=== PATIENT | male | born 1960 | race Caucasian/White ===

== ENCOUNTER 2025-03-18 08:42 | Inpatient (IN) ==
--- NOTE | 2025-03-18 09:07 | Emergency Department Note ---
History of Present Illness General Chief complaint: Flank Pain Stated complaint: L FLANK PAIN Time Seen by Provider: 03/18/25 08:55 History of Present Illness Maximum Pain Intensity: 10 This is a 64-year-old male who presents to the emergency department via private vehicle with complaints of "abdominal pain". The patient notes that this morning he ate some peanuts and then had abrupt onset epigastric abdominal pain. No trauma no injury. He does note this does feel similar to pain he experienced 7 years ago when he had pancreatitis but this seems more severe. He notes the pain radiates into his back. Pain is also in the lower chest. No dyspnea. No fevers or chills. No vomiting. Current pain 03/13. Home Medications Medication Instructions Recorded Confirmed Type esomeprazole magnesium 20 mg 20 mg PO DAILY 03/18/25 03/18/25 History capsule,delayed release (Nexium) losartan 25 mg tablet 25 mg PO DAILY 03/18/25 03/18/25 History Allergies Allergy/AdvReac Type Severity Reaction Status Date / Time No Known Drug Allergies Allergy no known Verified 03/18/25 14:17 Past Med/Surg History Problem List Epigastric abdominal pain (Acute) GERD (gastroesophageal reflux disease) Acute pancreatitis (Acute) No pertinent past surgical history Medical History History of Hou's esophagus HTN (hypertension) Social History Smoking Status: Never smoker Hx Alcohol Use: No Hx Substance Use: No Preferred Language: Lithuanian Communication Ability: Effective Occupational Hygienist Required: No Beliefs That Will Affect Care: None Current Living Situation: Spouse Other Information That Helps Us Care for You: No Feels Safe at Home: Yes Safety Concerns: Feels Safe At This Time Assistive Devices: Hearing Aid - Bilateral Review of Systems A total of 10 systems reviewed and were otherwise negative Physical Exam Vital Signs Vital Signs - 24 hr 03/18/25 08:45 03/18/25 08:55 03/18/25 08:59 Temperature 36 C L Temperature Source Temporal Artery Scan Pulse Rate 99 H 95 H Pulse Rate [Apical] 95 H Respiratory Rate 20 18 Respiratory Effort / Characteristics Non-Labored Spontaneous Respiratory Depth Normal Respiratory Pattern Regular Blood Pressure 158/95 H Blood Pressure [Left Arm] 171/99 H Blood Pressure Mean 116 Blood Pressure Mean [Left Arm] 123 Pulse Oximetry 96 96 Oxygen Delivery Method Room Air Room Air Sepsis Recent Fever Within 48 Hours No Sepsis New/Unexplained Change in Mental Status No Sepsis Action Taken by Nursing No Action Required VITAL SIGNS - Vital signs and nursing notes were reviewed. Hypertensive, otherwise stable and afebrile. GENERAL -64-year-old male appearing his stated age who is in no acute distress but appears to be in pain. Communicates well with provider and answers questions appropriately. SKIN - Without rashes. No meningeal or petechial rash. HEAD - NC/AT. EYES - Sclera anicteric. NECK - No nuchal rigidity. LUNGS - CTA CARDIAC - RRR ABDOMEN - Abdominal contour normal without pulsations or visible masses. BS normoactive all four quadrants. No tenderness, palpable masses, hepatosplenomegaly, or ascites noted. EXTREMITIES - No clubbing or peripheral cyanosis. +5/5 strength noted in UE/LE bilaterally. NEUROLOGIC - Cranial nerves II through XII grossly intact. PSYCH -alert, oriented and pleasant on exam Course Administered Medications Acetaminophen (Acetaminophen 325 Mg Tab) 650 mg PO Q4H PRN PRN Reason: Pain or Fever Stop: 04/17/25 11:18 Last Admin: 03/18/25 11:30 Dose: 650 mg Documented By: RAINER Lactated Ringer's (Lr) 1,000 mls @ 200 mls/hr IV .Q5H GREG Stop: 03/21/25 14:14 Last Admin: 03/18/25 20:01 Dose: 200 mls/hr Documented By: Infusion: 03/18/25 20:01 Dose: Infused Documented By: Admin: 03/18/25 14:22 Dose: 200 mls/hr Documented By: RAINER Discontinued Medications Hydromorphone HCl (Hydromorphone Inj 0.5 Mg/0.5 Ml Syr) 0.5 mg IV NOW STA Stop: 03/18/25 09:06 Last Admin: 03/18/25 09:10 Dose: 0.5 mg Documented By: jyoti Hydromorphone HCl (Hydromorphone Inj 0.5 Mg/0.5 Ml Syr) 0.25 mg IV Q6H PRN PRN Reason: Pain Stop: 04/01/25 11:26 Last Admin: 03/18/25 11:41 Dose: 0.25 mg Documented By: RAINER Sodium Chloride (Nss) 1,000 mls @ 999 mls/hr IV .Q1H1M ONE Stop: 03/18/25 10:53 Last Infusion: 03/18/25 11:48 Dose: Infused Documented By: Admin: 03/18/25 10:07 Dose: 999 mls/hr Documented By: cathi Ioversol (Optiray 320 125ml) 112 ml IV ONCE ONE Stop: 03/18/25 09:21 Last Admin: 03/18/25 09:20 Dose: 112 ml Documented By: STEPHEN Miscellaneous Information (Patient's Allergy Info Needs Entered) 1 each N/A Q30M STA Stop: 03/18/25 14:14 Last Admin: 03/18/25 17:49 Dose: 1 each Documented By: RAINER Ondansetron HCl (Ondansetron Inj 2 Mg/Ml 2 Ml Vial) 4 mg IV NOW STA Stop: 03/18/25 09:06 Last Admin: 03/18/25 09:11 Dose: 4 mg Documented By: jyoti Medical Decision Making Laboratory Data 03/18/25 09:00 03/18/25 09:00 Lab Results 03/18/25 03/18/25 Range/Units 09:00 09:03 WBC 8.07 (4.8-10.8) K/ul RBC 5.64 (4.70-6.10) M/uL Hgb 15.9 (14.0-18.0) g/dl POC Hgb 16.7 (14.0-18.0) g/dl Hct 46.6 (42.0-52.0) % POC Hct 49 (42-52) % MCV 82.6 (80.0-100.0) fL MCH 28.2 (25.0-34.0) pg MCHC 34.1 (32.0-36.0) g/dL RDW Std Deviation 39.5 (36.4-46.3) fL RDW Coeff of Maulik 13.2 (11.5-14.5) % Plt Count 355 (130-400) K/uL MPV 9.7 (9.4-12.4) fL Immature Gran % (Auto) 0.2 % Neut % (Auto) 52.2 % Lymph % (Auto) 33.2 % [place] % (Auto) 11.9 % Eos % (Auto) 1.4 % Baso % (Auto) 1.1 % Neut # (Auto) 4.21 (1.40-6.50) K/uL Lymph # (Auto) 2.68 (1.20-3.40) K/uL [place] # (Auto) 0.96 H (0.11-0.59) K/uL Eos # (Auto) 0.11 (0.00-0.50) K/uL Baso # (Auto) 0.09 (0.00-0.20) K/uL Immature Gran # (Auto) 0.02 (0.01-0.20) K/uL PT 10.4 (9.0-12.0) Seconds INR 1.0 (0.9-1.1) APTT 29 (21-31) Seconds PTT Ratio 1.1 POC Sodium 138 (135-144) mmol/L Sodium 137 (136-145) mmol/L POC Potassium 3.7 (3.3-5.0) mmol/L Potassium 3.7 (3.5-5.1) mmol/L POC Chloride 101 (101-112) mmol/L Chloride 101 (98-107) mmol/L Carbon Dioxide 28 (21-32) mmol/L POC Total CO2 25 (24-31) mmol/L Anion Gap 8 (3-11) POC Anion Gap 17.0 (16-25) mmol/L POC BUN 18 (7-18) mg/dl BUN 16 (6-23) mg/dl Creatinine 0.96 (0.6-1.4) mg/dl POC Creatinine 1.1 (0.6-1.3) mg/dl Est Cr Clr Drug Dosing 80.1 ml/min eGFR 87.72 BUN/Creatinine Ratio 16.7 (10-20) Glucose 159 H (70-99(Fasting)) mg/dl POC Glucose (other) 161 H (70-99) mg/dl Calcium 9.6 (8.6-10.3) mg/dl POC Ioniz Calcium Juli 1.10 L (1.12-1.32) mmol/l Magnesium 2.1 (1.7-2.4) mg/dl Total Bilirubin 1.3 H (0.2-1.0) mg/dl AST 36 (13-39) U/L ALT 29 (7-52) U/L Alkaline Phosphatase 63 (34-104) U/L Troponin I High Sens 2.8 (0-20) pg/ml Total Protein 7.4 (6.0-8.3) gm/dl Albumin 4.0 (3.4-5.0) gm/dl Globulin 3.4 (2.5-4.0) gm/dl Albumin/Globulin Ratio 1.2 (0.9-2) Lipase 2623 H (11-82) U/L Imaging Data Radiologist's Impression: Abdomen/Pelvis CT 03/18/25 09:05 CT SCAN OF THE ABDOMEN AND PELVIS WITH IV CONTRAST CLINICAL HISTORY: Epigastric abdominal pain. COMPARISON STUDY: No priors TECHNIQUE: Following the IV administration of 112 cc of Optiray 320, CT scan of the abdomen and pelvis is performed from the lung bases to the proximal femora. Images are reviewed in the axial, sagittal, and coronal planes. IV contrast was administered without complication. A dose lowering technique was utilized adhering to the principles of ALARA. FINDINGS: Lung bases: The heart is normal in size and without pericardial effusion. There are low suspicion 3 mm pulmonary and pleural based nodules in the lingula seen on images #41 and #56. The lung bases are otherwise clear noting bibasilar scarring/atelectasis. Liver: The contrast-enhanced liver is normal in size, contour, and attenuation. There is mild central intrahepatic biliary ductal dilatation. The hepatic veins and portal veins are patent. Gallbladder: The gallbladder is distended and there are tiny calcified gallstones. There is no convincing CT evidence of acute cholecystitis. Spleen: Normal in size and attenuation. Pancreas: There is mild inflammatory change and fluid around the pancreatic head consistent with acute pancreatitis. The gland is otherwise normal in appearance and enhances throughout. The duct is normal in caliber. No peripancreatic fluid collection is seen. The splenic vein is patent. Adrenal glands: Unremarkable. Kidneys: The contrast enhanced kidneys are normal in size and without hydronephrosis. The kidneys enhance symmetrically. A circumaortic left renal vein is incidentally noted. Abdominal vasculature: The abdominal aorta is normal in course and caliber noting mild atherosclerotic calcification. Bowel: There is no bowel obstruction. The appendix is well-visualized and normal. Peritoneum: There is no intraperitoneal free air or abdominal ascites. There is a fat-containing umbilical hernia. Lymphadenopathy: None. Pelvic viscera: The prostate gland is mildly enlarged and heterogeneous. The bladder is mildly distended, and the wall appears thickened/trabeculated indicating chronic outlet obstruction. There is evidence of previous right inguinal herniorrhaphy. Surgical clips are noted along the spermatic cord. Skeletal structures: No lytic or blastic lesions are seen. There is mild lumbosacral spondylosis. IMPRESSION: 1. Mild inflammation and trace fluid around the pancreatic head is consistent with acute pancreatitis. Correlate with clinical and laboratory findings. 2. The pancreas enhances throughout and no peripancreatic fluid collection is seen. 3. Cholelithiasis without convincing CT evidence of acute cholecystitis. 4. Additional findings as above. ACT 112: Negative or not required by law. Electronically signed by: Jesse Chaparro M.D. 03/18/2025 9:49 AM Chest X-Ray 03/18/25 09:06 XR chest 1V portable CLINICAL HISTORY: epigastric abd pain COMPARISON STUDY: None FINDINGS: Heart size pulmonary vasculature are normal. No consolidation or pleural effusion. No pneumothorax. IMPRESSION: No acute findings. ACT 112: Negative or not required by law. Electronically signed by: Jamin Olsen M.D. 03/18/2025 9:49 AM Chest CTA 03/18/25 09:10 CT ANGIOGRAM OF THE CHEST COMBO CLINICAL HISTORY: Upper abdominal pain radiating to back. Evaluate for aortic dissection. COMPARISON STUDY: None. TECHNIQUE: Before and following the IV administration of 112 cc of Optiray 320, CT angiogram of the chest was performed from the thoracic inlet to the upper abdomen utilizing the dissection protocol. Images are reviewed in the axial, sagittal, and coronal planes. 3-D MIPS images are created and assessed. IV contrast was administered without complication. A dose lowering technique was utilized adhering to the principles of ALARA. CT DOSE: 2634.61 mGy.cm FINDINGS: The caliber of the thoracic aorta is normal. There is no thoracic aortic dissection or intramural hematoma. No pulmonary emboli are identified. There is no pericardial effusion. Size of the heart is within normal limits. There is no thoracic lymphadenopathy. A 4 mm right middle lobe nodule is likely benign. There is no consolidation to suggest pneumonia. Groundglass opacities within lungs favor atelectasis. Please note that the abdomen and pelvis CT will be reported separately. IMPRESSION: 1. No thoracic aortic dissection. 2. No acute intrathoracic findings. ACT 112: Negative or not required by law. Electronically signed by: Jose Guadalupe Owen M.D. 03/18/2025 9:44 AM MDM Narrative Patient was seen and evaluated as above in room B4. Review was performed of nursing notes and vital signs. After obtaining a thorough history and physical examination the above work up was performed. Patient presents to us today for evaluation of the above symptoms. He presents with acute onset epigastric abdominal pain radiating into the back. He appears to be in quite a bit of pain on examination. Vital signs stable. He does have a history of pancreatitis he notes about 7 years ago. Options of care were discussed with the patient. IV access was established. Labs were drawn. EKG per my interpretation reveals normal sinus rhythm at a rate of 94 bpm. QTc 450. QRS 86. No ST elevation. Stat creatinine testing performed and patient was sent directly to CT suite for evaluation noting this tearing type pain from the upper abdomen/lower chest into the back. CTA of the chest was performed as well as CT scan of the abdomen/pelvis. Results as above. There reassuringly is no dissection noted on the CT scan of the chest. The CT scan of the abdomen does reveal what appears to be pancreatitis. No leukocytosis or concerning anemia. Coags normal. No evidence of kidney or liver failure. There is T. bili 1.3. Troponin normal making ACS less likely. Lipase 2623 consistent with pancreatitis. Urinalysis does not suggest infection. At this time patient is felt best with inpatient management and noting the severity of pain and findings today. Case discussed with the hospitalist service. Please refer to further documentation regarding his stay. In the evaluation and treatment of this patient the following differential diagnoses were entertained: ACS, dissection, pancreatitis, obstruction, acute cholecystitis, among others Impression & Plan Acute pancreatitis, Epigastric abdominal pain Discharge Plan Visit Data Chief Complaint: Flank Pain Stated Complaint: L FLANK PAIN ED Provider: Lawrence Tavares ED Midlevel Provider: Singh Ornelas Discharge Problem: Acute pancreatitis, Epigastric abdominal pain Patient Disposition: Admitted As Inpatient Condition: Good Discharge Instructions Interventions: ED Discharge Assessment Last Done: 03/18/25 10:55 Addendum March 18, 2025 23:52 I was consulted by the Advanced Practice Provider and was substantively involved in the patient's visit.This includes aspects of the HPI, MDM, diagnostic interpretations, and disposition/plan. I discussed the case with the TONY and agree with the findings and plan as documented in TONY Bamat's note.
[2025-03-18] MEDS: HYDROmorphone INJ 0.5 MG/0.5 ML SYR IV STA (09:10)
[2025-03-18] MEDS: ONDANSETRON INJ 2 MG/ML 2 ML VIAL IV STA (09:11)
[2025-03-18] MEDS: OPTIRAY 320 125ml IV ONE (09:20)
[2025-03-18 09:31] LABS: Hematocrit (blood only) 46.6 % (42.0-52.0); Hemoglobin 15.9 g/dl (14.0-18.0); Immature Granulocytes # (auto) 0.02 K/uL (0.01-0.20); Immature Granulocytes % (auto) 0.2 %; Mean Corpuscular Hemoglobin 28.2 pg (25.0-34.0); Mean Corpuscular Volume 82.6 fL (80.0-100.0); Platelet Count 355 K/uL (130-400); RDW Standard Deviation 39.5 fL (36.4-46.3); Red Blood Count 5.64 M/uL (4.70-6.10); White Blood Count 8.07 K/ul (4.8-10.8)
--- NOTE | 2025-03-18 09:45 | CT Scan Report ---
CT ANGIOGRAM OF THE CHEST COMBO CLINICAL HISTORY: Upper abdominal pain radiating to back. Evaluate for aortic dissection. COMPARISON STUDY: None. TECHNIQUE: Before and following the IV administration of 112 cc of Optiray 320, CT angiogram of the c hest was performed from the thoracic inlet to the upper abdomen utilizing the dissection protocol. Im ages are reviewed in the axial, sagittal, and coronal planes. 3-D MIPS images are created and assesse d. IV contrast was administered without complication. A dose lowering technique was utilized adherin g to the principles of ALARA. CT DOSE: 2634.61 mGy.cm FINDINGS: The caliber of the thoracic aorta is normal. There is no thoracic aortic dissection or intr amural hematoma. No pulmonary emboli are identified. There is no pericardial effusion. Size of the he art is within normal limits. There is no thoracic lymphadenopathy. A 4 mm right middle lobe nodule is likely benign. There is no consolidation to suggest pneumonia. Groundglass opacities within lungs fa vor atelectasis. Please note that the abdomen and pelvis CT will be reported separately. IMPRESSION: 1. No thoracic aortic dissection. 2. No acute intrathoracic findings. ACT 112: Negative or not required by law. Electronically signed by: Jose Guadalupe Owen M.D. 03/18/2025 9:44 AM
[2025-03-18 09:50] LABS: Anion Gap 8.0 (3-11); Blood Urea Nitrogen 16.0 mg/dl (6-23); Calcium 9.6 mg/dl (8.6-10.3); Carbon Dioxide 28.0 mmol/L (21-32); Chloride 101.0 mmol/L (98-107); Creatinine Clr Calc Pharmacy 80.1 ml/min; Glucose 159.0 mg/dl (70-99(Fasting)); Potassium 3.7 mmol/L (3.5-5.1); Sodium 137.0 mmol/L (136-145)
--- NOTE | 2025-03-18 09:51 | XRay Report ---
XR chest 1V portable CLINICAL HISTORY: epigastric abd pain COMPARISON STUDY: None FINDINGS: Heart size pulmonary vasculature are normal. No consolidation or pleural effusion. No pneum othorax. IMPRESSION: No acute findings. ACT 112: Negative or not required by law. Electronically signed by: Jamin Olsen M.D. 03/18/2025 9:49 AM
--- NOTE | 2025-03-18 09:51 | CT Scan Report ---
CT SCAN OF THE ABDOMEN AND PELVIS WITH IV CONTRAST CLINICAL HISTORY: Epigastric abdominal pain. COMPARISON STUDY: No priors TECHNIQUE: Following the IV administration of 112 cc of Optiray 320, CT scan of the abdomen and pelv is is performed from the lung bases to the proximal femora. Images are reviewed in the axial, sagitta l, and coronal planes. IV contrast was administered without complication. A dose lowering technique w as utilized adhering to the principles of ALARA. FINDINGS: Lung bases: The heart is normal in size and without pericardial effusion. There are low suspicion 3 m m pulmonary and pleural based nodules in the lingula seen on images #41 and #56. The lung bases are o therwise clear noting bibasilar scarring/atelectasis. Liver: The contrast-enhanced liver is normal in size, contour, and attenuation. There is mild central intrahepatic biliary ductal dilatation. The hepatic veins and portal veins are patent. Gallbladder: The gallbladder is distended and there are tiny calcified gallstones. There is no convin cing CT evidence of acute cholecystitis. Spleen: Normal in size and attenuation. Pancreas: There is mild inflammatory change and fluid around the pancreatic head consistent with acut e pancreatitis. The gland is otherwise normal in appearance and enhances throughout. The duct is norm al in caliber. No peripancreatic fluid collection is seen. The splenic vein is patent. Adrenal glands: Unremarkable. Kidneys: The contrast enhanced kidneys are normal in size and without hydronephrosis. The kidneys enh ance symmetrically. A circumaortic left renal vein is incidentally noted. Abdominal vasculature: The abdominal aorta is normal in course and caliber noting mild atheroscleroti c calcification. Bowel: There is no bowel obstruction. The appendix is well-visualized and normal. Peritoneum: There is no intraperitoneal free air or abdominal ascites. There is a fat-containing umbi lical hernia. Lymphadenopathy: None. Pelvic viscera: The prostate gland is mildly enlarged and heterogeneous. The bladder is mildly disten ded, and the wall appears thickened/trabeculated indicating chronic outlet obstruction. There is evid ence of previous right inguinal herniorrhaphy. Surgical clips are noted along the spermatic cord. Skeletal structures: No lytic or blastic lesions are seen. There is mild lumbosacral spondylosis. IMPRESSION: 1. Mild inflammation and trace fluid around the pancreatic head is consistent with acute pancreatitis . Correlate with clinical and laboratory findings. 2. The pancreas enhances throughout and no peripancreatic fluid collection is seen. 3. Cholelithiasis without convincing CT evidence of acute cholecystitis. 4. Additional findings as above. ACT 112: Negative or not required by law. Electronically signed by: Jesse Chaparro M.D. 03/18/2025 9:49 AM
[2025-03-18 10:02] LABS: INR 1.0 (0.9-1.1); Partial Thromboplastin Time 29 Seconds (21-31); Prothrombin Time 10.4 Seconds (9.0-12.0)
[2025-03-18] MEDS: SODIUM CHLORIDE 0.9% 1,000 ML IV ONE (10:07)
[2025-03-18 10:10] LABS: Alanine Aminotransferase 29.0 U/L (7-52); Albumin Globulin Ratio 1.2 (0.9-2); Albumin Level 4.0 gm/dl (3.4-5.0); Alkaline Phosphatase 63.0 U/L (34-104); Bilirubin,Total 1.3 mg/dl (0.2-1.0); Globulin 3.4 gm/dl (2.5-4.0); Lipase 2623.0 U/L (11-82); Magnesium 2.1 mg/dl (1.7-2.4); Total Protein 7.4 gm/dl (6.0-8.3)
--- NOTE | 2025-03-18 10:29 | History & Physical Report ---
<Statement entered by Matt Jung, - 03/18/25 12:29> I have seen and examined the patient and have discussed the case with the advance practice provider. I have reviewed the advanced practitioner's documentation, and I agree with, and take responsibility for that plan of care. Patient seen and evaluated at the bedside. States that his pain has improved with some hydration and pain medicine in the ED. He reports that he had a bout of pancreatitis 6 or 7 years ago that was treated outpatient. He states that this was triggered by him eating a whole can of cashews and drinking 5 or 6 beers. Since then he has had intermittent abdominal discomfort when he eats fried or fatty foods but never had any recurrence of his pancreatitis until today. He states that he did drink 2 or 3 beers over the weekend but has not had any since then. He does state that he has been eating a lot of peanuts over the last few weeks. No fevers or chills. Exam: Abdomen: Slightly distended, tender epigastric area with some mild guarding, no rigidity Acute pancreatitis, suspect could be combination of alcohol and possible biliary pancreatitis despite the fact that his LFTs are normal. Imaging does show distended gallbladder with some cholelithiasis. Patient does have a history of alcohol use with use within the last 3 to 4 days. Agree with GI consultation for further recommendations on additional evaluation Further plan of care as outlined below I spent a total of 20 minutes coordinating, documenting, and providing care for this patient excluding time spent by another provider/QHP. Date of Service March 18, 2025 Assessment & Plan (1) Acute pancreatitis: (2) HTN (hypertension): (3) History of Hou's esophagus: (4) GERD (gastroesophageal reflux disease): Plan Mr. Velázquez is a 64 year old Cacuasian male that presented to the [facility] ED with guarded abdominal pain. He went to bed as normal and woke this morning with abdominal pain. He ate cereal, yogurt and coffee this morning which exacerbating his symptoms leading him to not being able to stand up and then he proceeded to the ED. Lipase level 2623, no leukocytosis, troponin negative, no transaminitis, T. bili 1.3. ECG NSR. CTAP revealed acute pancreatitis and revealed gallstones without obstruction or cholangitis to indicate acute biliary disease. Chest CT was performed ruling out dissection. Pt will be admitted to treat acute pancreatitis. Will keep n.p.o. for now and initiate clear liquids as able to support good integrity, may benefit from starting a lipid-lowering agent; will order fasting lipid panel for the a.m. Continue IV fluids and trend lipase in AM. Consult GI. Acute Pancreatitis: Lipase 2623; trend in AM No leukocytosis, social alcohol use Troponin Neg, No transaminitis. CTAP suggests acute pancreatitis with cholelithiasis without obstruction likely ISO of elevated cholesterol vs biliary disease Chest CT does not indicate any cardiac dissection ECG NSR NPO for now until better pain control and then advance as possible to support good gut integrity Received 1LNS in ED; continue IVF @ 125ml/hour Obtain lipid panel Pain control with Dilaudid and Oxy PRN GI Consult to determine if further testing with HIDA vs MRCP indicated HTN: Chronic Takes Losartan; continue H/O Barrets Esophagus: GERD: Takes Omeprazole; hold given it can cause pancreatitis Disposition: PCP: Herman Andre PA-C Code Status: Full VTE Prophylaxis: Lovenox SQ I spent a total of 81 minutes coordinating, documenting, and providing care for this patient excluding time spent inthe performance of separately billed services or time spent by another provider/QHP. History of Present Illness Chief Complaint: abdominal pain Primary Care Provider: Herman Andre DO Mr. Velázquez is a 64 year old Cacuasian male that presented to the [facility] ED with guarded abdominal pain. He went to bed as normal and woke this morning with abdominal pain. He ate cereal, yogurt and coffee this morning which exacerbating his symptoms leading him to not being able to stand up and then he proceeded to the ED. Patient was hypertensive on arrival, which has resolved. He did take his Losartan this AM. He denies tobacco, more than social alcohol use, or recreational drug use. Lipase level 2623, no leukocytosis, troponin negative, no transaminitis, T. bili 1.3. ECG NSR. A CTAP revealed acute pancreatitis and revealed gallstones without obstruction or cholangitis to indicate acute biliary disease. Chest CT was performed to rule out dissection; a 4 mm right mid middle lung nodule was identified. As an outpatient over the last year patient has had intermittent chest pain and he had a stress echo on 11/17/2024 LV wall motion normal EF 55 to 59%. His most recent lipid panel was in September 2024 triglyceride 80, LDL elevated at 125. Most recent A1c from September 2024 is 5.6. In the ED patient received initial 1L NS and pain control with Dilaudid 0.5 with significant improvement. Denies STONE, dizziness, visual or auditory changes (wears a hearing aid), chest pain, shortness of breath, urinary or bowel changes, recent falls or trauma. Pt will be admitted to treat acute pancreatitis. Will keep n.p.o. for now and initiate clear liquids as able to support good integrity, may benefit from starting a lipid-lowering agent; will order fasting lipid panel for the a.m. Continue IV fluids and trend lipase in AM. Consult GI. Home Medications Medication Instructions Recorded Confirmed Type esomeprazole magnesium 20 mg 20 mg PO DAILY 03/18/25 03/18/25 History capsule,delayed release (Nexium) losartan 25 mg tablet 25 mg PO DAILY 03/18/25 03/18/25 History Past Med/Surg History Problem List GERD (gastroesophageal reflux disease) Acute pancreatitis No pertinent past surgical history Medical History History of Hou's esophagus HTN (hypertension) Social History Smoking Status: Never smoker Hx Alcohol Use: No Hx Substance Use: No Preferred Language: Swedish Communication Ability: Effective Truck Manager Required: No Beliefs That Will Affect Care: None Current Living Situation: Spouse Feels Safe at Home: Yes Assistive Devices: None Review of Systems Review of Systems: Neuro: (-) Falls, trauma, slurred speech HEENT: (-) STONE, dizziness, dysphagia, visual or auditory changes CV: (-) CP, palpitations, swelling Resp: (-) SOB GI: (-) appetite changes, N/V/D, bowel changes (+) Abdominal pain : (-) urinary changes Skin: (-) rashes Psych: (-) anxiety, depression Physical Exam Physical Exam: Neuro: AAOx4, PERRLA, no aphagia, memory changes, CNII-XII grossly intact HEENT: head normocephalic, moist mucus membranes CV: S1/S2, (-) M/G/R, (-) edema, cap refill < 3 seconds Resp: Lungs CTA in all balck. On RA GI: Abdomen large, tender, slightly distended, Hypoactive bowel sounds x 4 , (-) CVA tenderness Musculoskeletal: 5/5 B/L UE strength, 5/5 B/L LE strength. No gait disturbance Skin: (-) rashes , (-) erythema. Psych: euthymic mood Results & Data Results & Data Vital Signs (Past 12 Hours) Vital Signs Temp Pulse Pulse Resp BP BP Pulse Ox 03/18/25 08:59 95 H 03/18/25 08:55 95 H 18 171/99 H 96 03/18/25 08:45 36 C L 99 H 20 158/95 H 96 O2 Del Method 03/18/25 08:59 03/18/25 08:55 Room Air 03/18/25 08:45 Room Air Laboratory Results Short CBC 03/18/25 Range/Units 09:00 WBC 8.07 (4.8-10.8) K/ul Hgb 15.9 (14.0-18.0) g/dl Hct 46.6 (42.0-52.0) % Plt Count 355 (130-400) K/uL BMP 03/18/25 09:00 Sodium 137 Potassium 3.7 Chloride 101 Carbon Dioxide 28 BUN 16 Creatinine 0.96 Glucose 159 H Calcium 9.6 Liver Function 03/18/25 Range/Units 09:00 Total Bilirubin 1.3 H (0.2-1.0) mg/dl AST 36 (13-39) U/L ALT 29 (7-52) U/L Alkaline Phosphatase 63 (34-104) U/L Albumin 4.0 (3.4-5.0) gm/dl Diagnostic Findings Abdomen/Pelvis CT 03/18/25 09:05 CT SCAN OF THE ABDOMEN AND PELVIS WITH IV CONTRAST CLINICAL HISTORY: Epigastric abdominal pain. COMPARISON STUDY: No priors TECHNIQUE: Following the IV administration of 112 cc of Optiray 320, CT scan of the abdomen and pelvis is performed from the lung bases to the proximal femora. Images are reviewed in the axial, sagittal, and coronal planes. IV contrast was administered without complication. A dose lowering technique was utilized adhering to the principles of ALARA. FINDINGS: Lung bases: The heart is normal in size and without pericardial effusion. There are low suspicion 3 mm pulmonary and pleural based nodules in the lingula seen on images #41 and #56. The lung bases are otherwise clear noting bibasilar scarring/atelectasis. Liver: The contrast-enhanced liver is normal in size, contour, and attenuation. There is mild central intrahepatic biliary ductal dilatation. The hepatic veins and portal veins are patent. Gallbladder: The gallbladder is distended and there are tiny calcified gallstones. There is no convincing CT evidence of acute cholecystitis. Spleen: Normal in size and attenuation. Pancreas: There is mild inflammatory change and fluid around the pancreatic head consistent with acute pancreatitis. The gland is otherwise normal in appearance and enhances throughout. The duct is normal in caliber. No peripancreatic fluid collection is seen. The splenic vein is patent. Adrenal glands: Unremarkable. Kidneys: The contrast enhanced kidneys are normal in size and without hydronephrosis. The kidneys enhance symmetrically. A circumaortic left renal vein is incidentally noted. Abdominal vasculature: The abdominal aorta is normal in course and caliber noting mild atherosclerotic calcification. Bowel: There is no bowel obstruction. The appendix is well-visualized and normal. Peritoneum: There is no intraperitoneal free air or abdominal ascites. There is a fat-containing umbilical hernia. Lymphadenopathy: None. Pelvic viscera: The prostate gland is mildly enlarged and heterogeneous. The bladder is mildly distended, and the wall appears thickened/trabeculated indicating chronic outlet obstruction. There is evidence of previous right inguinal herniorrhaphy. Surgical clips are noted along the spermatic cord. Skeletal structures: No lytic or blastic lesions are seen. There is mild lumbosacral spondylosis. IMPRESSION: 1. Mild inflammation and trace fluid around the pancreatic head is consistent with acute pancreatitis. Correlate with clinical and laboratory findings. 2. The pancreas enhances throughout and no peripancreatic fluid collection is seen. 3. Cholelithiasis without convincing CT evidence of acute cholecystitis. 4. Additional findings as above. ACT 112: Negative or not required by law. Electronically signed by: Jesse Cahparro M.D. 03/18/2025 9:49 AM Chest X-Ray 03/18/25 09:06 XR chest 1V portable CLINICAL HISTORY: epigastric abd pain COMPARISON STUDY: None FINDINGS: Heart size pulmonary vasculature are normal. No consolidation or pleural effusion. No pneumothorax. IMPRESSION: No acute findings. ACT 112: Negative or not required by law. Electronically signed by: Jamin Olsen M.D. 03/18/2025 9:49 AM Chest CTA 03/18/25 09:10 CT ANGIOGRAM OF THE CHEST COMBO CLINICAL HISTORY: Upper abdominal pain radiating to back. Evaluate for aortic dissection. COMPARISON STUDY: None. TECHNIQUE: Before and following the IV administration of 112 cc of Optiray 320, CT angiogram of the chest was performed from the thoracic inlet to the upper abdomen utilizing the dissection protocol. Images are reviewed in the axial, sagittal, and coronal planes. 3-D MIPS images are created and assessed. IV contrast was administered without complication. A dose lowering technique was utilized adhering to the principles of ALARA. CT DOSE: 2634.61 mGy.cm FINDINGS: The caliber of the thoracic aorta is normal. There is no thoracic aortic dissection or intramural hematoma. No pulmonary emboli are identified. There is no pericardial effusion. Size of the heart is within normal limits. There is no thoracic lymphadenopathy. A 4 mm right middle lobe nodule is likely benign. There is no consolidation to suggest pneumonia. Groundglass opacities within lungs favor atelectasis. Please note that the abdomen and pelvis CT will be reported separately. IMPRESSION: 1. No thoracic aortic dissection. 2. No acute intrathoracic findings. ACT 112: Negative or not required by law. Electronically signed by: Jose Guadalupe Owen M.D. 03/18/2025 9:44 AM Code Status & VTE Plan Code Status Full Code in the event of cardiac or respiratory arrest VTE Prophylaxis Plan VTE Prophylaxis will be ordered: Yes
[2025-03-18 10:45] LABS: Appearance Urine Clear (Clear); Glucose Urine UA Negative (Negative)
[2025-03-18] MEDS ORDERED: ONDANSETRON INJ 2 MG/ML 2 ML VIAL IV PRN (11:19)
[2025-03-18] MEDS ORDERED: ALUMINUM/MAGNESIUM SUSP 30 ML UDC PO PRN (11:19)
[2025-03-18] MEDS ORDERED: MAGNESIUM HYDROXIDE SUSP 30 ML UDC PO PRN (11:19)
[2025-03-18] MEDS ORDERED: POLYETHYLENE (MIRALAX) 17 GM PACK PO PRN (11:19)
[2025-03-18] MEDS: ACETAMINOPHEN 325 MG TAB PO PRN (11:30)
[2025-03-18] MEDS: HYDROmorphone INJ 0.5 MG/0.5 ML SYR IV PRN (11:41)
--- NOTE | 2025-03-18 11:46 | Gastrointestinal Consultation ---
Date of Consultation March 18, 2025 Assessment & Plan (1) Acute pancreatitis: 64 year old male with history of HTN, Hou's and others below who presented to the ED w/ abd pain - admitted w/ acute pancreatitis CT w/ gallstones, no apparent CBD stone, Tbili 1.3, transaminases non-elevated NPO MRCP IV LR 200 mL/hr Assess for adequate hydration Antiemetics PRN Analgesia PRN ETOH cessation recommended I spent a total of 60 minutes on the date of service in review of patient's record, and previously obtained information in person and appropriate medical visit, discussion and education of plan, with patient and/or caregiver, placing orders for tests/referral/procedures as medically necessary and documentation of pertinent clinical information in patient's medical records for their visit today. Supervising Physician Co-Signing Physician Notes Pancreatitis with low [place] score. CT suggest multiple small gallstones. MRI negative for CBD stone. Minimal elevation of bilirubin at 1.3 which is may be just Gilbert's condition. At this point as this is his second bout of pancreatitis and he has multiple small gallstones I think he is gallbladder should come out. Will be seen by surgery. Follow-up MRI for the small cyst in the head of the pancreas in approximately 1 year. History of Present Illness Reason for Consultation: acute pancreatitis/cholelithiasis sans obstruction Requesting Physician: Matt Jung DO Attending Physician: Matt Jung DO History of Present Illness 64 year old male with history of HTN, Hou's and others below who presented to the ED w/ abd pain - admitted w/ acute pancreatitis. GI asked to evaluate. He suggests he had an episode of pancreatitis about 6/7 years ago. Was not admitted but recalls being told he had very high lipase levels after he sought care for upper abd pain. Suggests he made some dietary/lifestyle changes after this event and was doing well. Notes that he was previously using ETOH daily but stopped this about one year ago and now suggests 2-3 drinks 1-2 times a month. Last ETOH use was about 2 weeks ago. Reports after eating breakfast, he developed severe, upper abd pain, near identical to the pain he had a few years ago with his previous bout of pancreatitis. Associated nausea. No vomiting. No fever, chills, CP, SOB ETOH: socially Tobacco: none New medications none Triglycerides: OP labs 80 reported in hospitalist documentation WBC 8, H&H 15.9/46.6, PLT 355, INR 1, BUN 16, ENGINEERING PROGRAM ANALYST .96, Tb 1.3, AST 36, ALT 29. ALKP 63, Lipase 2623 CTAP 2024: The contrast-enhanced liver is normal in size, contour, and attenu ation. There is mild central intrahepatic biliary ductal dilatation. The hepatic veins and portal veins are patent. The gallbladder is distended and there are tiny calcified gallstones. There is no convincing CT evidence of acute cholecystitis. There is mild inflammatory change and fluid around the pancreatic head consistent with acute pancreatitis. The gland is otherwise normal in appearance and enhances throughout. The duct is normal in caliber. No peripancreatic fluid collection is seen. The splenic vein is patent.Mild inflammation and trace fluid around the pancreatic head is consistent with acute pancreatitis. Correlate with clinical and laboratory findings.The pancreas enhances throughout and no peripancreatic fluid collection is seen. Cholelithiasis without convincing CT evidence of acute cholecystitis. EGD: 2-3 years ago at [facility] per patient Colonoscopy: 1-2 years ago at [facility] per patient Allergies Allergy/AdvReac Type Severity Reaction Status Date / Time No Known Drug Allergies Allergy no known Verified 03/18/25 14:17 Home Medications Medication Instructions Recorded Confirmed Type esomeprazole magnesium 20 mg 20 mg PO DAILY 03/18/25 03/18/25 History capsule,delayed release (Nexium) losartan 25 mg tablet 25 mg PO DAILY 03/18/25 03/18/25 History Patient History Medical History History of Hou's esophagus HTN (hypertension) Social History Smoking Status: Never smoker Hx Alcohol Use: No Hx Substance Use: No Preferred Language: Cambodian Communication Ability: Effective Technical Instructor Course Developer Required: No Beliefs That Will Affect Care: None Current Living Situation: Spouse Feels Safe at Home: Yes Assistive Devices: None Review of Systems Review of Systems: All other findings negative except as noted in HPI. Physical Exam Constitutional: WD/WN, vitals as above Respiratory: normal respiratory effort, lungs clear to auscultation Cardiovascular: Rate/Rhythm: regular rate Gastrointestinal (Abdomen): normal bowel sounds, soft, nontender, no hepatosplenomegaly Skin: no rashes, warm and dry Results & Data Vital Signs (Past 12 Hours) Vital Signs Temp Pulse Pulse Resp BP BP Pulse Ox 03/18/25 11:20 97.5 F L 88 16 165/89 H 99 03/18/25 10:54 94 H 24 156/87 H 99 03/18/25 08:59 95 H 03/18/25 08:55 95 H 18 171/99 H 96 03/18/25 08:45 96.8 F L 99 H 20 158/95 H 96 O2 Del Method 03/18/25 11:20 Room Air 03/18/25 10:54 Room Air 03/18/25 08:59 03/18/25 08:55 Room Air 03/18/25 08:45 Room Air Laboratory Results 03/18/25 03/18/25 03/18/25 Range/Units 10:33 09:03 09:00 WBC 8.07 (4.8-10.8) K/ul RBC 5.64 (4.70-6.10) M/uL Hgb 15.9 (14.0-18.0) g/dl POC Hgb 16.7 (14.0-18.0) g/dl Hct 46.6 (42.0-52.0) % POC Hct 49 (42-52) % MCV 82.6 (80.0-100.0) fL MCH 28.2 (25.0-34.0) pg MCHC 34.1 (32.0-36.0) g/dL RDW Std Deviation 39.5 (36.4-46.3) fL RDW Coeff of Maulik 13.2 (11.5-14.5) % Plt Count 355 (130-400) K/uL MPV 9.7 (9.4-12.4) fL Immature Gran % (Auto) 0.2 % Neut % (Auto) 52.2 % Lymph % (Auto) 33.2 % [place] % (Auto) 11.9 % Eos % (Auto) 1.4 % Baso % (Auto) 1.1 % Neut # (Auto) 4.21 (1.40-6.50) K/uL Lymph # (Auto) 2.68 (1.20-3.40) K/uL [place] # (Auto) 0.96 H (0.11-0.59) K/uL Eos # (Auto) 0.11 (0.00-0.50) K/uL Baso # (Auto) 0.09 (0.00-0.20) K/uL Immature Gran # (Auto) 0.02 (0.01-0.20) K/uL PT 10.4 (9.0-12.0) Seconds INR 1.0 (0.9-1.1) APTT 29 (21-31) Seconds PTT Ratio 1.1 POC Sodium 138 (135-144) mmol/L Sodium 137 (136-145) mmol/L POC Potassium 3.7 (3.3-5.0) mmol/L Potassium 3.7 (3.5-5.1) mmol/L POC Chloride 101 (101-112) mmol/L Chloride 101 (98-107) mmol/L Carbon Dioxide 28 (21-32) mmol/L POC Total CO2 25 (24-31) mmol/L Anion Gap 8 (3-11) POC Anion Gap 17.0 (16-25) mmol/L POC BUN 18 (7-18) mg/dl BUN 16 (6-23) mg/dl Creatinine 0.96 (0.6-1.4) mg/dl POC Creatinine 1.1 (0.6-1.3) mg/dl Est Cr Clr Drug Dosing 80.1 ml/min eGFR 87.72 BUN/Creatinine Ratio 16.7 (10-20) Glucose 159 H (70-99(Fasting)) mg/dl POC Glucose (other) 161 H (70-99) mg/dl Calcium 9.6 (8.6-10.3) mg/dl POC Ioniz Calcium Juli 1.10 L (1.12-1.32) mmol/l Magnesium 2.1 (1.7-2.4) mg/dl Total Bilirubin 1.3 H (0.2-1.0) mg/dl AST 36 (13-39) U/L ALT 29 (7-52) U/L Alkaline Phosphatase 63 (34-104) U/L Troponin I High Sens 2.8 (0-20) pg/ml Total Protein 7.4 (6.0-8.3) gm/dl Albumin 4.0 (3.4-5.0) gm/dl Globulin 3.4 (2.5-4.0) gm/dl Albumin/Globulin Ratio 1.2 (0.9-2) Lipase 2623 H (11-82) U/L Urine Color Yellow Urine Appearance Clear (Clear) Urine pH 8.0 H (4.5-7.5) Ur Specific [place] > 1.045 H (1.000-1.030) Urine Protein Negative (Negative) Urine Glucose (UA) Negative (Negative) Urine Ketones Negative (Negative) Urine Blood Negative (Negative) Urine Nitrite Negative (Negative) Urine Bilirubin Negative (Negative) Urine Urobilinogen Negative (Negative) Ur Leukocyte Esterase Negative (Negative) Urine Comment PG Care Time/CCT Total # of Minutes Spent Total Time Spent with Patient: Total time spent is greater than 50% in coordination of care (as documented) at patient's floor/unit and/or counseling patient: Coding Level of Care Code 38990 INT INP/OBS CARE 2MIN Diagnoses Acute pancreatitis K85.90
[2025-03-18] MEDS ORDERED: HYDROmorphone INJ 0.5 MG/0.5 ML SYR IV PRN (14:13)
[2025-03-18] MEDS: LACTATED RINGER'S 1,000 ML IV SCH (14:22)
--- NOTE | 2025-03-18 18:11 | Magnetic Resonance Report ---
MRCP Without Contrast CLINICAL HISTORY: Abdominal pain TECHNIQUE: Images were acquired without intravenous gadolinium contrast through the upper abdomen. The following MR images were acquired without intravenous contrast: TrueFISP, multiplanar T2-weighted, axial T1 in/out of phase, T2-weighted MRCP images, axial diffusion-weighted and axial apparent diffusion coefficient. T1-weighted images were obtained without contrast. Comparison study: FINDINGS: Biliary Tree: No biliary ductal dilatation. Pancreas: No pancreatic duct dilatation. A small cyst in the head of the pancreas measuring 4 x 3 mm, is seen, series 601 image 126. Liver: Normal noncontrast appearance. Gallbladder: Mild adjacent free fluid. No gallstones. Spleen: Normal Kidneys: Normal Adrenal glands: Normal Bowel: No normally dilated bowel. Lymph nodes: No pathologic lymph adenopathy. Blood vessels: No aortic aneurysm. Lung bases: Grossly clear Bones and soft tissues: Unremarkable Mesentery and abdominal wall: Unremarkable Ascites: None IMPRESSION: No biliary ductal dilatation or obstructing stone. There is mild free fluid adjacent to the gallbladder, which is nonspecific, without visualized gallstone, which may represent acute cholecystitis, versus sequelae of intrinsic liver disease or systemic volume status changes. There is a small cyst in the head of the pancreas. Consider a 12-month follow-up MRI. Electronically signed by Cory Andre 03-18-2025 6:11 PM
[2025-03-18 19:48] VITALS: RESP 18
[2025-03-19 06:52] LABS: Hematocrit (blood only) 42.3 % (42.0-52.0); Hemoglobin 14.6 g/dl (14.0-18.0); Mean Corpuscular Hemoglobin 28.7 pg (25.0-34.0); Mean Corpuscular Volume 83.1 fL (80.0-100.0); Platelet Count 288 K/uL (130-400); RDW Standard Deviation 40.5 fL (36.4-46.3); Red Blood Count 5.09 M/uL (4.70-6.10); White Blood Count 7.19 K/ul (4.8-10.8)
[2025-03-19 07:21] LABS: Anion Gap 6.0 (3-11); Blood Urea Nitrogen 10.0 mg/dl (6-23); Calcium 8.9 mg/dl (8.6-10.3); Carbon Dioxide 26.0 mmol/L (21-32); Chloride 107.0 mmol/L (98-107); Cholesterol 162.0 mg/dl (0-200); Creatinine Clr Calc Pharmacy 89.8 ml/min; Glucose 89.0 mg/dl (70-99(Fasting)); HDL Cholesterol 44.0 mg/dl; Lipase 260.0 U/L (11-82); Magnesium 1.9 mg/dl (1.7-2.4); Potassium 4.0 mmol/L (3.5-5.1); Sodium 139.0 mmol/L (136-145); Triglycerides 87.0 mg/dl (0-150)
[2025-03-19] MEDS: LOSARTAN POTASSIUM 25 MG TAB PO SCH (08:26)
--- NOTE | 2025-03-19 09:42 | Gastroenterology Progress Note ---
Date of Service March 19, 2025 Assessment & Plan (1) Acute pancreatitis: Plan: 64 year old male with history of HTN, Hou's and others below who presented to the ED w/ abd pain - admitted w/ acute pancreatitis CT w/ gallstones, no apparent CBD stone, Tbili 1.3, transaminases non-elevated. MRCP w/o biliary ductal dilation or apparent CBD stone. Recommend general surgery consultation to discuss CCY IV LR 200 mL/hr Assess for adequate hydration Antiemetics PRN Analgesia PRN ETOH cessation recommended Trial of clear liquids today I spent a total of 40 minutes on the date of service in review of patient's record, and previously obtained information in person and appropriate medical visit, discussion and education of plan, with patient and/or caregiver, placing orders for tests/referral/procedures as medically necessary and documentation of pertinent clinical information in patient's medical records for their visit today. Admission and Anticipated Discharge Date Admission Date: March 18, 2025 Subjective Pt was seen and evaluated, chart reviewed. MRCP reviewed, no evidence of CBD stone. He notes his abd pain is improving, although not resolved. No nausea/vomiting. Passing gas. MRCP 2024: No biliary ductal dilatation or obstructing stone. There is mild free fluid adjacent to the gallbladder, which is nonspecific, without visualized gallstone, which may represent acute cholecystitis, versus sequelae of intrinsic liver disease or systemic volume status changes. There is a small cyst in the head of the pancreas. Consider a 12-month follow-up MRI. Review of Systems Review of Systems: All other findings negative except as noted in HPI. Physical Exam Constitutional: WD/WN, vitals as above Respiratory: normal respiratory effort, lungs clear to auscultation Cardiovascular: RRR, no murmur, no edema Gastrointestinal (Abdomen): normal bowel sounds, soft, nontender, no hepatosplenomegaly Skin: no rashes, warm and dry Results & Data Results & Data Vital Signs (Past 12 Hours) Vital Signs Temp Pulse Pulse Resp BP Pulse Ox O2 Del Method 03/19/25 07:38 97.9 F 74 18 145/81 H 95 Room Air 03/19/25 07:13 87 03/19/25 02:53 97.5 F L 69 18 116/69 97 Room Air 03/18/25 23:08 97.3 F L 71 18 118/75 96 Room Air 03/18/25 21:58 67 Laboratory Results 03/19/25 03/18/25 03/18/25 Range/Units 06:25 10:33 09:00 WBC 7.19 (4.8-10.8) K/ul RBC 5.09 (4.70-6.10) M/uL Hgb 14.6 (14.0-18.0) g/dl Hct 42.3 (42.0-52.0) % MCV 83.1 (80.0-100.0) fL MCH 28.7 (25.0-34.0) pg MCHC 34.5 (32.0-36.0) g/dL RDW Std Deviation 40.5 (36.4-46.3) fL RDW Coeff of Maulik 13.3 (11.5-14.5) % Plt Count 288 (130-400) K/uL MPV 9.5 (9.4-12.4) fL PT 10.4 (9.0-12.0) Seconds INR 1.0 (0.9-1.1) APTT 29 (21-31) Seconds PTT Ratio 1.1 Sodium 139 137 (136-145) mmol/L Potassium 4.0 3.7 (3.5-5.1) mmol/L Chloride 107 101 (98-107) mmol/L Carbon Dioxide 26 28 (21-32) mmol/L Anion Gap 6 8 (3-11) BUN 10 16 (6-23) mg/dl Creatinine 0.85 0.96 (0.6-1.4) mg/dl Est Cr Clr Drug Dosing 89.8 80.1 ml/min eGFR 96.43 87.72 BUN/Creatinine Ratio 11.8 16.7 (10-20) Glucose 89 159 H (70-99(Fasting)) mg/dl Calcium 8.9 9.6 (8.6-10.3) mg/dl Magnesium 1.9 2.1 (1.7-2.4) mg/dl Total Bilirubin 1.3 H (0.2-1.0) mg/dl AST 36 (13-39) U/L ALT 29 (7-52) U/L Alkaline Phosphatase 63 (34-104) U/L Troponin I High Sens 2.8 (0-20) pg/ml Total Protein 7.4 (6.0-8.3) gm/dl Albumin 4.0 (3.4-5.0) gm/dl Globulin 3.4 (2.5-4.0) gm/dl Albumin/Globulin Ratio 1.2 (0.9-2) Triglycerides 87 (0-150) mg/dl Cholesterol 162 (0-200) mg/dl LDL Cholesterol, Calc 101 mg/dl VLDL Cholesterol, Calc 17 (0-30) mg/dl HDL Cholesterol 44 mg/dl Cholesterol/HDL Ratio 3.7 (0-5) Lipase 260 H 2623 H (11-82) U/L Urine Color Yellow Urine Appearance Clear (Clear) Urine pH 8.0 H (4.5-7.5) Ur Specific [place] > 1.045 H (1.000-1.030) Urine Protein Negative (Negative) Urine Glucose (UA) Negative (Negative) Urine Ketones Negative (Negative) Urine Blood Negative (Negative) Urine Nitrite Negative (Negative) Urine Bilirubin Negative (Negative) Urine Urobilinogen Negative (Negative) Ur Leukocyte Esterase Negative (Negative) Urine Comment PG Care Time/CCT Total # of Minutes Spent Total Time Spent with Patient: Total time spent is greater than 50% in coordination of care (as documented) at patient's floor/unit and/or counseling patient: Coding Level of Care Code 17842 SUB INP/OBS CARE 2/35MIN Diagnoses Acute pancreatitis K85.90
[2025-03-19 11:11] VITALS: BP 138/83; TEMP 98.1; O2SAT 92
--- NOTE | 2025-03-19 14:22 | Discharge Summary ---
Discharge Summary Date of Service March 19, 2025 Principal Dx & Hospital Course #1 = Principal Diagnosis (1) Acute pancreatitis: (2) HTN (hypertension): (3) History of Hou's esophagus: (4) GERD (gastroesophageal reflux disease): Plan Mr. Velázquez is a 64 year old [place] male that presented to the [facility] ED with epigastric pain. CT AP showing pancreatitis. Lipase elevated > 3x ULN. Qualifies as acute pancreatitis. History of same a few years ago which was attributed to alcohol intake. CT AP showed cholelithiasis so MRCP was done which was negative for choledocholithiasis but did show multiple GB stones. He denies any RUQ pain. Jonas's sign negative. LFTs were WNL. Low suspicion for acute cholecystitis. He did endorse drinking a few alcoholic beverages prior to onset. etiology of this episode either alcohol vs passed GB stone. He was started on IVF and his pain quickly resolved the following day. Today he tolerated solids and wishes to go home. He did not wish to wait for surgery to see him here. He was set up with gen surgery OP appt next week. vitals and labs stable for dc home. Notes For Next Care Provider Medication Changes From Visit none Admission HPI Per Admitting Provider Mr. Velázquez is a 64 year old [place] male that presented to the [facility] ED with guarded abdominal pain. He went to bed as normal and woke this morning with abdominal pain. He ate cereal, yogurt and coffee this morning which exacerbating his symptoms leading him to not being able to stand up and then he proceeded to the ED. Patient was hypertensive on arrival, which has resolved. He did take his Losartan this AM. He denies tobacco, more than social alcohol use, or recreational drug use. Lipase level 2623, no leukocytosis, troponin negative, no transaminitis, T. bili 1.3. ECG NSR. A CTAP revealed acute pancreatitis and revealed gallstones without obstruction or cholangitis to indicate acute biliary disease. Chest CT was performed to rule out dissection; a 4 mm right mid middle lung nodule was identified. As an outpatient over the last year patient has had intermittent chest pain and he had a stress echo on 11/17/2024 LV wall motion normal EF 55 to 59%. His most recent lipid panel was in September 2024 triglyceride 80, LDL elevated at 125. Most recent A1c from September 2024 is 5.6. In the ED patient received initial 1L NS and pain control with Dilaudid 0.5 with significant improvement. Denies STONE, dizziness, visual or auditory changes (wears a hearing aid), chest pain, shortness of breath, urinary or bowel changes, recent falls or trauma. Pt will be admitted to treat acute pancreatitis. Will keep n.p.o. for now and initiate clear liquids as able to support good integrity, may benefit from starting a lipid-lowering agent; will order fasting lipid panel for the a.m. Continue IV fluids and trend lipase in AM. Consult GI. Discharge Exam Vitals and labs reviewed General: Well appearing, NAD HEENT: EOMI, PERRLA Neck: Supple Cardiac: RRR no rubs gallops or murmurs Lungs: CTA no rhonchi wheezing or rales Abd: S NT ND BS positive : Deffered MSK: Full ROM. No obvious deformities Ext: No Edema cyanosis Skin: Warm, Dry Neuro: AOx3 No focal deficits. Psych: Normal Mood Updated Medication List Medication Instructions Recorded Confirmed Type esomeprazole magnesium 20 mg 20 mg PO DAILY 03/18/25 03/18/25 History capsule,delayed release (Nexium) losartan 25 mg tablet 25 mg PO DAILY 03/18/25 03/18/25 History Hospital Stay Data Consultations 03/18/25 10:06 ED Decision to Admit Stat 03/18/25 11:25 Consult Gastroenterology Routine Diagnostic Imagining Performed 03/18/25 09:05 CT abd pelvis IV con only Stat 03/18/25 09:10 CT angio chest dissec wo/w con Stat 03/18/25 12:12 MR MRCP Routine Pending Results Patient Have Any Pending Studies at Discharge: No Discharge Instructions Given to Patient (Per Discharging Provider) Please follow up with Dr Diane, Date & Time: 03/24/2025 11:30 AM General Surgery, [facility] Avoid fatty foods and alcohol Total Time Total Time Spent Total Time Spent (In Minutes): 45
[2025-03-19 14:24] VITALS: PULSE 89
--- NOTE | 2025-03-19 14:38 | Surgery Consultation ---
Date of Consultation March 19, 2025 Assessment & Plan (1) Gallstone pancreatitis: CT and MRI images and results were personally viewed and interpreted by myself Does have gallstones evident on CT scan as well as pancreatitis He is feeling much better without any pain and his lipase has come down He is tolerating a regular diet and is antoinette be discharged this afternoon He should follow-up with general surgery next week and we can set him up for cholecystectomy in the near future to prevent any further episodes of pancreatitis History of Present Illness Reason for Consultation: Gallstone pancreatitis Attending Physician: Aiden Moreno DO History of Present Illness This is a 64-year-old male who was admitted yesterday with upper abdominal pain sharp in nature. He had some associated nausea without vomiting. Workup did show pancreatitis as well as gallstones. He has never had this happen in the past. He denies any fevers or chills. At the time of me seeing him he is without any pain at this point. He is tolerating a regular diet for lunch. He denies any previous abdominal surgeries with the inguinal hernia repair in the past. Denies any scleral icterus, jaundice, tea colored urine or acholic stools. Allergies Allergy/AdvReac Type Severity Reaction Status Date / Time No Known Drug Allergies Allergy no known Verified 03/18/25 14:17 Home Medications Medication Instructions Recorded Confirmed Type esomeprazole magnesium 20 mg 20 mg PO DAILY 03/18/25 03/18/25 History capsule,delayed release (Nexium) losartan 25 mg tablet 25 mg PO DAILY 03/18/25 03/18/25 History Patient History Medical History History of Hou's esophagus HTN (hypertension) Social History Smoking Status: Never smoker Hx Alcohol Use: No Hx Substance Use: No Preferred Language: French Communication Ability: Effective Substation Inspector Required: No Beliefs That Will Affect Care: None Current Living Situation: Spouse Other Information That Helps Us Care for You: No Feels Safe at Home: Yes Safety Concerns: Feels Safe At This Time Assistive Devices: None Review of Systems Constitutional: no fever and no chills Eyes: no blind spots and no discharge Ear, Nose, Mouth, Throat: no ear pain and no ear discharge Respiratory: no cough and no dyspnea Cardiovascular: no chest pain and no dyspnea on exertion Gastrointestinal: + abdominal pain; no nausea, no vomiting , no constipation and no diarrhea/loose stools Genitourinary: no dysuria or no difficulty urinating Musculoskeletal: no back pain and no neck pain Integumentary: no acne and no lesions Neurologic: no gait abnormality and no headache(s) Psychiatric: no behavioral changes and no depression Physical Exam Constitutional: WD/WN, vitals as above Eyes: PERRL, conjunctivae normal, anicteric sclerae ENMT: external ear and nose normal, oropharynx normal Neck: trachea midline, no thyromegaly Respiratory: normal respiratory effort, lungs clear to auscultation Cardiovascular: RRR, no murmur, no edema Gastrointestinal (Abdomen): Inspection/Auscultation: abdomen normal to inspection; abdomen not distended Percussion/Palpation: abdomen soft; abdomen nontender and no guarding Musculoskeletal: no cyanosis or clubbing, extremities motor strength 5/5 Skin: no rashes, warm and dry Neurologic: PERRL, EOMI, accommodation nl, no face palsy, no dysarthria Results & Data Vital Signs (Past 12 Hours) Vital Signs Temp Pulse Pulse Pulse Resp BP Pulse Ox 03/19/25 14:23 36.7 C 89 81 18 138/83 92 03/19/25 11:11 36.7 C 81 18 138/83 92 03/19/25 07:38 36.6 C 74 18 145/81 H 95 03/19/25 07:13 87 03/19/25 02:53 36.4 C L 69 18 116/69 97 O2 Del Method 03/19/25 14:23 03/19/25 11:11 Room Air 03/19/25 07:38 Room Air 03/19/25 07:13 03/19/25 02:53 Room Air PG Care Time/CCT Total # of Minutes Spent Total Time Spent with Patient: Total time spent is greater than 50% in coordination of care (as documented) at patient's floor/unit and/or counseling patient: Coding Level of Care Code 76485 IN/OBS CONSULT LVL 5,80M Diagnoses Gallstone pancreatitis K85.10
== END 2025-03-19 15:41 | disposition home or self-care (01) | DRG 440 ==
LOC: ED 08:42 → 2N 10:17 → SUATTDRO 10:17 → 2N 10:55